=== PATIENT | female | born 1995 | race Caucasian/White ===

== ENCOUNTER → 2016-10-03 | Outpatient (CLI) | payer BC ==
[~2016-10-03] MED LIST: PRENTAB26 PO
[2016-10-03 12:34] LABS: URINE APPEARANCE CLOUDY (CLEAR); URINE BILIRUBIN NEG (NEG); URINE COLOR YELLOW; URINE EPITHELIAL CELL AUTO >30 /lpf (0-5); URINE NITRITE NEG (NEG); URINE SPECIFIC GRAVITY 1.019 (1.000-1.030); UROBILINOGEN NEG (NEG)
[2016-10-03 12:38] LABS: MANUAL MICROSCOPIC REQUIRED? NO; REVIEW REQ? NO
== END | disposition home or self-care (01) ==
LOC: C.LABSPEC 11:30
PROVIDERS: ATTEND Obstetrics & Gynecology
DX: Z34.03 Encounter for supervision of normal first pregnancy, third trimester (principal)

== ENCOUNTER → 2016-10-18 | Outpatient (CLI) | payer BC ==
[2016-10-18 13:10] LABS: HEMATOCRIT 37.1 % (37-47)
== END | disposition home or self-care (01) ==
LOC: C.LAB1850 12:02
PROVIDERS: ATTEND Obstetrics & Gynecology
DX: Z34.03 Encounter for supervision of normal first pregnancy, third trimester (principal)

== ENCOUNTER → 2016-10-31 | Outpatient (CLI) | payer BC ==
[2016-10-31 14:16] LABS: GTGD 50 Grams
== END | disposition home or self-care (01) ==
LOC: C.LAB1850 11:37
PROVIDERS: ATTEND Obstetrics & Gynecology
DX: Z34.03 Encounter for supervision of normal first pregnancy, third trimester (principal)

== ENCOUNTER → 2016-11-15 | Outpatient (CLI) | payer BC ==
[2016-11-15 19:09] LABS: PATIENT HEIGHT 139.7 cm
[2016-11-15 19:23] LABS: BASO % 0.3 %; BASO ABS # 0.03 K/uL (0-0.2); COMPLETE YES; EOS % 0.6 %; HEMATOCRIT 34.7 % (37-47); IG% 1.2 %; LYMPH % 21.8 %; LYMPH ABS # 2.36 K/uL (1.2-3.4); MEAN CELL VOLUME 83.8 fL (80-100); MEAN CORPUSCULAR HEMOGLOBIN 28.7 pg (25-34); MEAN CORPUSCULAR HGB CONC 34.3 g/dl (32-36); MEAN PLATELET VOLUME 10.9 fL (7.4-10.4); MONO % 8.7 %; NEUT % 67.4 %; PLATELET COUNT 226 K/uL (130-400); RED BLOOD COUNT 4.14 M/uL (4.2-5.4); WHITE BLOOD COUNT 10.83 K/uL (4.8-10.8)
[2016-11-15 19:45] LABS: URINE TOTAL PROTEIN 8.6 mg/dl (0-11.9)
[2016-11-15 19:45] LABS: ALT/SGPT 18 U/L (12-78); AST/SGOT 24 U/L (15-37); CREATININE 0.71 mg/dl (0.60-1.20); URIC ACID 5.3 mg/dl (2.6-7.2)
[2016-11-15 20:31] LABS: CREATININE 0.71 mg/dl (0.6-1.2); URINE TOTAL PROTEIN CALC 206.4 mg/24 hr (0-149.1)
== END | disposition home or self-care (01) ==
LOC: C.LAB 17:28
PROVIDERS: ATTEND Obstetrics & Gynecology
DX: O12.00 Gestational edema, unspecified trimester (principal)

== ENCOUNTER 2016-12-01 14:22 | Inpatient (IN) | payer BC ==
[~2016-12-01] VITALS: Ht 165.1 cm; Wt 110.0 kg
[2016-12-01] MEDS ORDERED: MAGNESIUM SULFATE / WTR 1,000 ML IV ONE (14:53)
[2016-12-01] MEDS ORDERED: HydrALAZINE HCL 20 MG/ML VIAL IV. PRN (15:00)
[2016-12-01] MEDS ORDERED: BETAMETH SOD PHOS/ACETATE IA 6 MG/ML IM SCH (15:00)
[2016-12-01] MEDS ORDERED: IV FLUIDS COMPLETED PRN (15:15)
[2016-12-01] MEDS ORDERED: CEFAZOLIN IV 1,000 MG in DEXTROSE 5% 50ML 50 ML IV PRN (15:15)
[2016-12-01] MEDS ORDERED: MAGNESIUM SULFATE 4GM / WTR 100ML IV ONE (15:30)
[2016-12-01] MEDS ORDERED: CEFAZOLIN IV 2,000 MG in DEXTROSE 5% 50ML 50 ML IV ONE (15:30)
--- NOTE | 2016-12-01 15:33 | HISTORY & PHYSICAL EXAMINATION ---
DATE OF ADMISSION: 12/01/2016 REASON FOR ADMISSION: Severe preeclampsia. HISTORY OF PRESENT ILLNESS: This is a 21-year-old who is currently 35 weeks and 4 days gestation. She was sent from the office today based on a finding of elevated blood pressure, 3+ proteinuria, headache, visual disturbances and severe edema. Her has previously been complicated only by large fundal height with findings of a high end of normal estimated weight and back pain with sciatica. She currently notes that she has good movement, no contractions, no leakage of fluid, no vaginal bleeding. A group B strep was just collected in the office, but no cervical exam is documented. The patient is complaining of a headache that has been unrelieved by Tylenol as well as intermittent visual disturbances. She currently denies any right upper quadrant pain. She does have worsening edema, which was previously to the knee and is now beginning to rise into the thigh, which is tense and painful per the patient as well as edema in her hands and her face. History includes ALLERGY TO AMOXICILLIN. MEDICATIONS: Include vitamins. PAST MEDICAL HISTORY: Depression and anxiety as well as varicella in childhood. PAST SURGICAL HISTORY: Includes oral surgery for wisdom tooth removal. FAMILY HISTORY: Noncontributory. SOCIAL HISTORY: , female. Negative x3. PHYSICAL EXAMINATION: VITAL SIGNS: Include pressure 143/86, pulse of 88. heart tones 140, moderate variability good accels, no decels. Toca shows irritability, not appreciated by the patient. HEART: Shows regular rate and rhythm. LUNGS: Clear to auscultation. ABDOMEN: Gravid and soft with edema in the skin evident. GENITOURINARY: Cervical and vaginal exam has been deferred thus far as patient was bust filling out paperwork; however, I will return to do a cervical vaginal exam shortly. EXTREMITIES: The pedal edema is 3+ with pitting and rises to well above the knee. Deep tendon reflexes in the bilateral lower extremities, 3+ but do not demonstrate clonus. ASSESSMENT AND PLAN: A 21-year-old with severe preeclampsia at 35 and 4. The plan will be to admit for induction of labor. She is getting started now on magnesium for seizure prophylaxis. She is also going to be given betamethasone according to the updated guidelines which we will repeat in 12 hours as the delivery may have occurred by 24. The patient is going to be given IV hypertensive if indicated based on future blood pressures, I will send repeat serum labs now and the method of induction will be determined pending her cervical and vaginal examination.
[2016-12-01] MEDS: LACTATED RINGER'S 1000ML 1,000 ML IV SCH ×2 (15:36→22:08)
[2016-12-01 15:42] LABS: URINE PROTIEN/CREAT RATIO 0.4 (0-0.2); URINE TOTAL PROTEIN 125.4 mg/dl (0-11.9)
[2016-12-01 15:44] LABS: BASO % 0.2 %; BASO ABS # 0.02 K/uL (0-0.2); EOS % 0.4 %; HEMATOCRIT 34.3 % (37-47); IG% 1.2 %; LYMPH % 18.1 %; LYMPH ABS # 1.87 K/uL (1.2-3.4); MEAN CELL VOLUME 83.1 fL (80-100); MEAN CORPUSCULAR HEMOGLOBIN 28.6 pg (25-34); MEAN PLATELET VOLUME 10.8 fL (7.4-10.4); MONO % 7.4 %; NEUT % 72.7 %; PLATELET COUNT 233 K/uL (130-400); RED BLOOD COUNT 4.13 M/uL (4.2-5.4); WHITE BLOOD COUNT 10.35 K/uL (4.8-10.8)
[2016-12-01 15:51] VITALS: Ht 165.1 cm; Wt 110.0 kg
[2016-12-01] MEDS ORDERED: PRENTAB26 PO ×2 (15:51)
[2016-12-01 15:53] LABS: INR 0.9 (0.9-1.1); PARTIAL THROMBOPLASTIN RATIO 1.1; PROTHROMBIN TIME (PATIENT) 9.9 SECONDS (9.0-12.0)
[2016-12-01 15:59] LABS: COMPLETE YES; MEAN CORPUSCULAR HGB CONC 34.4 g/dl (32-36)
[2016-12-01] MEDS ORDERED: LACTATED RINGER'S 1000ML 500 ML IV PRN ×2 (16:01→21:49)
[2016-12-01 16:10] LABS: CREATININE 0.72 mg/dl (0.60-1.20); URIC ACID 6.2 mg/dl (2.6-7.2)
[2016-12-01] MEDS ORDERED: OXYTOCIN 30 UNITS/500ML NSS IV PRN (16:15)
[2016-12-01] MEDS: MAGNESIUM SULFATE 40GM / WTR 1000 ML IV SCH (16:17)
[2016-12-01] MEDS ORDERED: FENTANYL 2MCG/ML ROPIV 1.25MG/ML 100ML BAG EPI ONE (21:09)
[2016-12-01] MEDS ORDERED: BUPIVACAINE 0.25% 30 ML VIAL ONE (21:09)
[2016-12-01] MEDS ORDERED: EpHEDrine SULFATE INJ 50 MG/ML AMP ONE (21:09)
[2016-12-01] MEDS ORDERED: FENTANYL CITRATE INJ 50 MCG/1 ML 2 ML VIAL ONE (21:10)
[2016-12-01] MEDS ORDERED: ONDANSETRON INJ 2 MG/ML 2 ML VIAL IV PRN (22:00)
[2016-12-01] MEDS ORDERED: NALBUPHINE HCL INJ 10 MG/ML AMP IV PRN (22:00)
[2016-12-01] MEDS ORDERED: FENTANYL 2MCG/ML ROPIV 1.25MG/ML 100ML BAG EPI PRN (22:00)
[2016-12-01] MEDS ORDERED: DiphenhydrAMINE HCL 50 MG/ML VIAL IV PRN (22:00)
[2016-12-01] MEDS ORDERED: NALOXONE HCL INJ 0.4 MG/1 ML VIAL/CARP IV PRN (22:00)
[2016-12-01] MEDS ORDERED: EpHEDrine SULFATE INJ 50 MG/ML AMP IV PRN (22:00)
[2016-12-02] MEDS ORDERED: BENZOCAINE 20% AER SPR 82.5 GM CAN EXT PRN (00:30)
[2016-12-02] MEDS ORDERED: ACETAMINOPHEN 325 MG TAB PO PRN (00:30)
[2016-12-02] MEDS ORDERED: OXYTOCIN 30 UNITS/500ML NSS IV PRN (00:30)
[2016-12-02] MEDS ORDERED: DIPHTHERIA/TETANUS/PERTUSSIS 0.5 ML SYR/VIAL IM. ONE (00:30)
[2016-12-02] MEDS ORDERED: HYDROCORTISONE ACETATE 25 MG SUPP PR PRN (00:30)
[2016-12-02] MEDS ORDERED: SUPERCREAM 0.870 % 15GM JAR EXT PRN (00:30)
[2016-12-02] MEDS ORDERED: LANOLIN OINT EXT PRN ×2 (00:30)
--- NOTE | 2016-12-02 00:50 | Anesthesia Procedure Note ---
Anesthesia Epidural Removal Nt Date & Time Dec 02, 2016 at 00:49 Vital Signs Pain Intensity: 0.0 Notes Mental Status: alert / awake / arousable, participated in evaluation Nausea / Vomiting: adequately controlled Pain: adequately controlled Airway Patency, RR, SpO2: stable & adequate BP & HR: stable & adequate Hydration State: stable & adequate Neuraxial Anesthesia: was administered Anesthetic Complications: no major complications apparent, pt satisfied with anesthetic care Epidural: removed without complications, with tip intact
[2016-12-02] MEDS ORDERED: EpHEDrine SULFATE INJ 50 MG/ML AMP ONE (02:16)
[2016-12-02] MEDS ORDERED: METHYLERGONOVINE MALEATE 0.2 MG/ML AMP ONE (02:17)
[2016-12-02] MEDS ORDERED: LIDOCAINE/PRILOCAINE 2.5% EA CRM ONE (02:26)
[2016-12-02 02:32] LABS: HEMATOCRIT 27.4 % (37-47)
[2016-12-02] MEDS: OXYTOCIN INJ 20 UNITS in LACTATED RINGER'S 1000ML 1,000 ML IV SCH (03:17)
[2016-12-02] MEDS: IBUPROFEN 600 MG TAB PO PRN ×4 (03:47→22:39)
[2016-12-02] MEDS: OXYCODONE/ACETAMINOPHEN 5-325 TAB PO PRN ×4 (03:48→22:39)
--- NOTE | 2016-12-02 03:59 | DELIVERY SUMMARY ---
DATE OF OPERATION: 12/02/2016 PREOPERATIVE DIAGNOSES: 1. Severe preclampsia with carpenter intrauterine at 35 and 4. 2. Induction of labor. 3. Group B streptococcus unknown. POSTOPERATIVE DIAGNOSES: Same. PROCEDURE: Spontaneous vaginal delivery and repair of second degree laceration. SURGEON: Lynn Garland MD CHIEF SUPPLY CHAIN OFFICER: None. ESTIMATED BLOOD LOSS: 500 mL. COMPLICATIONS: None. DISPOSITION: Stable in labor and delivery. DESCRIPTION OF PROCEDURE: Whitney is a 21-year-old , who presented at 35 and 4/7 weeks with a diagnosis of severe preclampsia from the office based on blood pressure and proteinuria. She additionally had severe symptoms including headache unrelieved by medication and visual changes as well as 3+ DTRs. For all of these reasons, delivery was recommended. The patient having been discussed with [facility] at [place] was kept here are Shahnaz Pinzon to proceed with induction. She received a dose of betamethasone as well as magnesium. She was started on antibiotics for group B strep prophylaxis in the setting of unknown group B strep and premature status and additionally her cervix was found to already be 5 cm dilated on arrival with spontaneous rupture of membranes. She was therefore augmented with Pitocin. The patient became completely dilated and was coached to push. She delivered the head of the infant in the OA position followed by both shoulders and the remainder of the with no difficulty whatsoever. The cord was noted to have extraordinarily excessive Ana's jelly, it was doubly clamped and cut by the father of the baby. The infant was very vigorous and was checked immediately by the waiting radio antenna installer. The placenta delivered spontaneously and will be sent for exam. It was noted to have a marginal insertion and to be exceptionally heavy for the gestational age. Cervix, vagina and perineum were examined and a second degree vaginal laceration was repaired in the usual fashion. At the completion of repair the fundus was firm, well contracted; lochia was minimal and mother and infant were in stable condition having tolerated delivery well. I attest to the content of the Intraoperative Record and any orders documented therein. Any exceptio ns are noted below.
[2016-12-02 07:25] LABS: HEMATOCRIT 26.9 % (37-47); MEAN CELL VOLUME 82.8 fL (80-100); MEAN CORPUSCULAR HEMOGLOBIN 27.4 pg (25-34); MEAN CORPUSCULAR HGB CONC 33.1 g/dl (32-36); MEAN PLATELET VOLUME 10.2 fL (7.4-10.4); PLATELET COUNT 206 K/uL (130-400); RED BLOOD COUNT 3.25 M/uL (4.2-5.4); WHITE BLOOD COUNT 21.87 K/uL (4.8-10.8)
[2016-12-02 07:59] LABS: BUN/CREATININE RATIO 10.3 (10-20); CALCIUM 7.8 mg/dl (8.5-10.1); CREATININE 0.91 mg/dl (0.60-1.20); POTASSIUM 4.5 mmol/L (3.5-5.1)
[2016-12-02 08:01] LABS: ALB/GLOB RATIO 0.7 (0.9-2)
[2016-12-02] MEDS: PRENATAL VITAMIN TAB PO SCH (08:21)
[2016-12-02] MEDS: DOCUSATE SODIUM 100 MG CAP PO SCH ×2 (08:21→20:00)
[2016-12-02] MEDS: CEFAZOLIN IV 1,000 MG in DEXTROSE 5% 50ML 50 ML IV SCH ×2 (09:46→18:20)
[2016-12-02] MEDS: LACTATED RINGER'S 1000ML 1,000 ML IV SCH ×2 (10:45→18:50)
[2016-12-02] MEDS: MAGNESIUM SULFATE 40GM / WTR 1000 ML IV SCH (13:33)
[2016-12-02 14:34] VITALS: BMI 47.9
[2016-12-03] MEDS: CEFAZOLIN IV 1,000 MG in DEXTROSE 5% 50ML 50 ML IV SCH ×2 (02:15→09:34)
[2016-12-03] MEDS: LACTATED RINGER'S 1000ML 1,000 ML IV SCH ×2 (02:20→09:34)
[2016-12-03 07:30] LABS: HEMATOCRIT 20.6 % (37-47); MEAN CELL VOLUME 84.4 fL (80-100); MEAN CORPUSCULAR HEMOGLOBIN 28.3 pg (25-34); MEAN CORPUSCULAR HGB CONC 33.5 g/dl (32-36); MEAN PLATELET VOLUME 9.6 fL (7.4-10.4); PLATELET COUNT 163 K/uL (130-400); RED BLOOD COUNT 2.44 M/uL (4.2-5.4)
[2016-12-03] MEDS: PRENATAL VITAMIN TAB PO SCH (08:10)
[2016-12-03] MEDS: DOCUSATE SODIUM 100 MG CAP PO SCH ×2 (08:10→20:00)
[2016-12-03] MEDS: MAGNESIUM SULFATE 40GM / WTR 1000 ML IV SCH (09:33)
[2016-12-03] MEDS: OXYTOCIN INJ 20 UNITS in LACTATED RINGER'S 1000ML 1,000 ML IV SCH (09:33)
[2016-12-03 16:15] VITALS: BP 124/84; PULSE 76; TEMP 37.2; O2SAT 96
[2016-12-03 20:40] VITALS: BP 128/70; PULSE 66; TEMP 36.8
[2016-12-03 23:35] VITALS: BP 125/80; PULSE 91; TEMP 36.9
[2016-12-04 04:45] VITALS: BP 143/87; PULSE 84; TEMP 36.8
[2016-12-04] MEDS: IBUPROFEN 600 MG TAB PO PRN (06:44)
--- NOTE | 2016-12-04 08:06 | Progress Note ---
Subjective Dec 04, 2016. Subjective conversation w/ patient, physical exam, lab review Ambulation: ambulating normally Voiding: no voiding problems Passing Gas: Yes Diet Tolerance: Regular Diet Lochia: Small Feeding Type: Breast Feeding Pain: tolerated with pain meds Comment: Patient had some lightheadedness with initial ambulation yesterday am but doing much better this am. no sob/cp. She is feeling overall much better. Objective Vital Signs Date Time Temp Pulse Resp B/P Pulse Ox O2 Delivery O2 Flow Rate FiO2 12/04/16 04:45 36.8 84 18 143/87 Room Air 12/03/16 23:35 Room Air 12/03/16 23:35 36.9 91 16 125/80 Room Air 12/03/16 20:40 36.8 66 16 128/70 Room Air 12/03/16 16:15 96 Room Air 12/03/16 16:15 37.2 76 18 124/84 96 Room Air Physical Exam General Appearance: WELL-APPEARING, WD/WN, NO APPARENT DISTRESS Respiratory/Chest: lungs clear, normal breath sounds Cardiovascular: + irregularly irregular Abdomen: normal bowel sounds, non tender, soft Fundus: Firm, Non-Tender, Relation to Umbilicus (at u) Extremities: non-tender, normal inspection, + pedal edema (+2) Assessment and Plan Post- Day#: 2 Continue Routine Care: Patient is s/p induction for pet, 24 hours of mag ended yesterday. Bakri balloon removed yesterday and doing well with small lochia. Seems to be tolerating hbg of 6.9 well. However, irreg/irreg heart rate detected today. Will order EKG. May need evaluation by medicine.
--- NOTE | 2016-12-04 09:20 | Progress Note ---
Progress Note Date of Service Dec 04, 2016. Progress Note EKG performed due to abnormal rhythm auscultated on exam by Dr Mercado this morning. EKG shows marked premature atrial contractions, reviewed EKG with on- call anthropology and archeology instructor Dr Love. PACs likely due to stress (anemia, recent delivery, etc). Will continue to monitor symptoms. At this time, patient's anemia is asymptomatic. Reviewed this information with patient also.
[2016-12-04] MEDS: PRENATAL VITAMIN TAB PO SCH (10:10)
[2016-12-04] MEDS: DOCUSATE SODIUM 100 MG CAP PO SCH (10:10)
[2016-12-04 10:30] VITALS: BP 136/92; PULSE 74; TEMP 36.9
--- NOTE | 2016-12-04 11:08 | Discharge Instructions ---
Discharge Instructions Date of Service Dec 04, 2016. Admission Reason for Admission: R/O Preeclampsia Discharge Discharge Diagnosis / Problem: s/p vaginal delivery Discharge Goals Goal(s): Routine recovery after delivery Activity Recommendations Activity Limitations: per Instructions/Follow-up section . Instructions / Follow-Up Instructions / Follow-Up ACTIVITY RECOMMENDATIONS: * Gradual return to full activity over the next 2-3 weeks. * No lifting - nothing heavier than baby over the next 2-3 weeks. * Do not engage in vigorous exercise, sexual activity or sports until cleared by your physician. * Do not drive or operate any motorized equipment until cleared by your physician. * You may shower/bathe daily. MEDICATIONS: For discomfort or pain, you may use Acetaminophen (Tylenol), Ibuprofen (Advil), or Naproxen (Aleve) following the package directions. For constipation you may use Colace following the package directions. BREAST CARE: If you are not breast feeding: * Wear a supportive bra 24 hours a day for one to two weeks. * Avoid stimulating your breasts and nipples as much as possible during the first few weeks after delivery. * When taking a shower, have the warm water hit your back, not breasts. * When your breasts feel full, apply ice packs. Usually three to four times a day helps ease the discomfort. * Take a mild pain medication (Tylenol / Motrin) when you are uncomfortable. If breast feeding: * Use breast milk to lubricate nipples. Lansinoh cream may be used for sore nipples. You do not need to remove cream prior to breast feeding. If using a different brand of cream, check the label for directions regarding removal of cream prior to nursing. * Wear a supportive bra. * If having problems with breasts or breast feeding, call a technical healthcare consultant or your health care provider. EPISIOTOMY CARE: After delivery, if you have an episiotomy (stitches), the following steps will ease discomfort and aid healing. * For the first 24 hours after delivery, place ice packs next to your episiotomy to help reduce swelling. * After the first 24 hour-period, sitz baths, either portable or in the tub, are suggested. A shower with a shower arm sprayed over the episiotomy may be comforting. * Toya care should be done after each voiding and bowel movement. Squirt warm water from a plastic bottle over the perineum (region of the body between the anus and urinary opening) and pat dry. * Use Dermoplast to ease discomfort. Shake container. [place] directly over the episiotomy. Place a Tucks on a clean sanitary pad next to your episiotomy. SPECIAL CARE INSTRUCTIONS: When you are discharged from the hospital, it is important for you to follow the instructions listed below: * During the first week at home, you should be able to care for yourself and your baby. In addition, the usual light household activities are encouraged. * Limit your activities to the way you feel. Do not try to clean the house or move furniture. Be sensible. * If you actively engage in sports and have done so up until the time of your delivery, you may resume these activities as soon as you feel able. This may take up to one month or even longer. Use good judgment. * Continue to take your vitamins for at least six weeks after the of your baby. * Your diet need not be limited unless you were on a special diet before your delivery. Breast-feeding mothers need around 2500 calories per day and at least 64-80 ounces of fluid per day (8 to 10 glasses). * You should eat foods from the four major food groups. Crash diets or fad diets are to be avoided. Eating lean meats, fresh fruits and vegetables, low-fat dairy products, high fiber foods and a regular exercise program, will help you get back to your pre- weight without putting your health at risk. * Constipation is sometimes a problem after delivery. Take a mild laxative as needed. If breast feeding, Milk of Magnesia is acceptable to use. You may use a suppository or Fleets enema if no episiotomy. * A daily shower or tub bath is suggested. Be sure to thoroughly and gently dry the perineum. * A bloody vaginal discharge will usually continue until around four weeks post . A small amount of bleeding may continue for as long as six weeks. Vaginal discharge changes from the bright red bleeding after delivery to pink then brownish and finally yellowish-pink before becoming white and disappearing. * Bleeding may increase with activity. Your first period may come in 4-8 weeks. If you are breast feeding, your period may be delayed even longer. * [place] (sex) can begin whenever both you and your partner feel comfortable and do not have any form of genital infection. It is recommended that you wait at least six weeks for internal and external healing to occur. If you have questions, please talk to your health care practitioner. A condom should be used to prevent infection and . * Foreplay, gentle intercourse and lubrication is very important the first several times to prevent pain. A water-based lubricant such as K-Y jelly or Astroglide may be used. * If you have RH negative blood and your baby is RH positive, you will receive RHOGAM by injection prior to discharge. The nurse will give you a card to keep with you that has the date and place that you received RHOGAM after delivery. * During your care, you had a Rubella screen done to check for the presence of rubella antibodies in your blood. If your test was negative, you will receive a Rubella vaccine prior to discharge. This vaccine may cause a fever, soreness at the injection site and flu-like symptoms. If these symptoms persist, notify your health care practitioner. is not advised for one month after a Rubella vaccine. * Verbalizes understanding of car seat law as reviewed with patient nursing. * Car Seat hand-out given and reviewed with patient by nursing. * Shaken baby information reviewed with patient by nursing. Call you doctor if: * Heavy bleeding (saturating several pads an hour) or passing clots the size of your fist. * A fever >101 degrees F (38.3 degrees C) on two occasions four hours apart and /or chills. * Unusual pain in the pelvic or vaginal areas. * "Baby Blues" lasting longer than two weeks. If you have any questions or concerns, call your health care practitioner at . FOLLOW UP VISIT: * Please call the office at to schedule a 6 week examination. It is important you keep this appointment. It is important for you to make arrangements for either yearly or twice yearly check-ups thereafter. Current Hospital Diet Patient's current hospital diet: Regular OB Diet Discharge Diet Recommended Diet: Regular OB Diet Pending Studies Studies pending at discharge: no Medical Emergencies . Who to Call and When: Medical Emergencies: If at any time you feel your situation is an emergency, please call 911 immediately. . Non-Emergent Contact Non-Emergency issues call your: Primary Care Provider, Busgirl . . "Provider Documentation" section prepared by Keyla Trevino. . VTE Core Measure Inpt VTE Proph given/why not?: Treatment not indicated
[2016-12-04 14:51] VITALS: BP_DIAS 92; PULSE 74; TEMP 36.9
--- NOTE | 2016-12-12 15:48 | DISCHARGE SUMMARY ---
COURSE OF CARE: This is a 21-year-old G1, P0 who was admitted at 35 weeks 4 days gestation. Based on a combination of lab work blood pressure and symptomatology, she was diagnosed with severe preeclampsia and she was indicated for delivery. Because of inability to transfer the patient to [facility] based on transport and bed availability the patient was offered induction here at [facility] which she did agree to. The patient did undergo a successful induction which resulted in a delivery of a healthy 35 week 4 day fetus via spontaneous vaginal delivery. The patient's postoperative care was essentially uncomplicated. She did demonstrate normal vital signs with resolution of her blood pressure to a normal level. She did have significant postoperative anemia following a mild hemorrhage with a kevin at 6.9. Her platelets remained normal. The patient was discharged home in stable condition on 12/04/2016 with instructions to follow up at the usual interval.
== END 2016-12-04 15:30 | disposition home or self-care (01) | DRG 774 ==
LOC: C.LD 14:22 → C.OPB 14:22 → INTOOBSV 14:55 → C.OPB 14:55 → C.LD 14:55 → OBSVTOIN 16:01 → C.OBG 12-03 15:24
PROVIDERS: ADMIT Obstetrics & Gynecology; ATTEND Obstetrics & Gynecology
PROC: 0KQM0ZZ Repair Perineum Muscle, Open Approach (ICD-10-PCS; principal; 2016-12-02)
PROC: 10903ZC Drainage of Amniotic Fluid, Therapeutic from Products of Conception, Percutaneous Approach (ICD-10-PCS; principal; 2016-12-02)
PROC: 10E0XZZ Delivery of Products of Conception, External Approach (ICD-10-PCS; principal; 2016-12-02)
DX: O60.13X1 Preterm labor second trimester with preterm delivery third trimester, fetus 1 (principal); O14.93 Unspecified pre-eclampsia, third trimester; O70.1 Second degree perineal laceration during delivery; Z37.0 Single live birth; Z3A.35 35 weeks gestation of pregnancy

== ENCOUNTER → 2016-12-01 | Outpatient (CLI) | payer BC | END | disposition home or self-care (01) | LOC: C.LABSPEC 15:16 | PROVIDERS: ATTEND Obstetrics & Gynecology | DX: Z34.03 Encounter for supervision of normal first pregnancy, third trimester (principal) ==

== ENCOUNTER → 2017-03-24 | Outpatient (CLI) | payer BC ==
[2017-03-24 19:23] LABS: BASO % 0.3 %; BASO ABS # 0.03 K/uL (0-0.2); COMPLETE YES; EOS % 0.6 %; HEMATOCRIT 41.4 % (37-47); IG% 0.2 %; LYMPH % 30.5 %; LYMPH ABS # 2.64 K/uL (1.2-3.4); MEAN CELL VOLUME 80.5 fL (80-100); MEAN CORPUSCULAR HEMOGLOBIN 27.6 pg (25-34); MEAN CORPUSCULAR HGB CONC 34.3 g/dl (32-36); MEAN PLATELET VOLUME 9.6 fL (7.4-10.4); NEUT % 62.4 %; PLATELET COUNT 229 K/uL (130-400); RED BLOOD COUNT 5.14 M/uL (4.2-5.4); WHITE BLOOD COUNT 8.65 K/uL (4.8-10.8)
[2017-03-24 19:50] LABS: ALT/SGPT 31 U/L (12-78); AMYLASE 30 U/L (25-115); AST/SGOT 15 U/L (15-37); BLOOD UREA NITROGEN 7 mg/dl (7-18); BUN/CREATININE RATIO 8.8 (10-20); CALCIUM 8.8 mg/dl (8.5-10.1); CARBON DIOXIDE 31 mmol/L (21-32); CHLORIDE 107 mmol/L (98-107); GLUCOSE 68 mg/dl (70-99); POTASSIUM 3.7 mmol/L (3.5-5.1); SODIUM 140 mmol/L (136-145)
[2017-03-24 19:53] LABS: ALB/GLOB RATIO 1.1 (0.9-2); ALKALINE PHOSPHATASE 96 U/L (45-117); C-REACTIVE PROTEIN < 0.29 mg/dl (0-0.29)
== END | disposition home or self-care (01) ==
LOC: C.LAB 19:06
PROVIDERS: ATTEND Family Medicine
DX: R10.9 Unspecified abdominal pain (principal)

== ENCOUNTER → 2017-03-29 | Outpatient (CLI) | payer BC ==
--- NOTE | 2017-03-29 09:02 | DIAGNOSTIC IMAGING REPORT ---
ABDOMEN COMPLETE (US) CLINICAL HISTORY: 21 years-old Female presenting with ABDOMINAL PAIN, 3 MONTHS . TECHNIQUE: Real-time grayscale and limited color Doppler ultrasound imaging of the abdomen was performed. COMPARISON: None. FINDINGS: Pancreas: Obscured due to overlying bowel gas. Liver: Moderately hyperechogenic parenchyma with partial obscuration of the right hemidiaphragm, likely indicating moderate steatosis. The liver measures 14.5 cm in maximal sagittal dimension. Main portal vein patent with normal directional flow. Biliary: No intrahepatic biliary ductal dilatation. Common bile duct measures up to 4 mm in diameter. Gallbladder: Normal in appearance without evidence of gallstones, gallbladder wall thickening, or pericholecystic fluid. Spleen: Normal in echogenicity and size, measuring 8.2 cm in length. Kidneys: Normal in size and echogenicity. Right kidney measures 9.8 cm, and left kidney measures 10.2 cm. No hydronephrosis. Vasculature: Visualized portions of the IVC and abdominal aorta normal. Ascites: None. IMPRESSION: 1. Hepatic steatosis. 2. No evidence of cholelithiasis or biliary ductal dilatation. Electronically signed by: Jairo Gibbs M.D. 03/29/2017 9:01 AM Dictated Date/Time: 03/29/2017 8:57 AM
== END | disposition home or self-care (01) ==
LOC: C.ULTR 07:37
PROVIDERS: ATTEND Family Medicine
DX: R10.9 Unspecified abdominal pain (principal); K76.0 Fatty (change of) liver, not elsewhere classified

== ENCOUNTER → 2017-04-20 | Outpatient (CLI) | payer BC ==
[~2017-04-20] MED LIST changes: +SINCALIDE INJ 1.7 MCG in SODIUM CHLORIDE 0.9% 100ML 100 ML IV SCH
--- NOTE | 2017-04-20 12:54 | DIAGNOSTIC IMAGING REPORT ---
NUCLEAR HEPATOBILIARY SCAN WITH EJECTION FRACTION IMAGING CLINICAL HISTORY: Intermittent diarrhea and crampy abdominal pain. COMPARISON STUDY: Abdominal ultrasound dated 03/29/2017. TECHNIQUE: Dynamic images of the liver and anterior abdomen were obtained every 5 minutes for a total of 60 minutes following the IV administration of 5.37mCi of technetium 99m Choletec. 1.7 mcg of sincalide was then injected with additional images acquired every 5 minutes for 45 minutes to calculate the gallbladder ejection fraction. FINDINGS: The hepatobiliary scan shows prompt and homogeneous hepatic uptake. There is visualized activity within the intra and extrahepatic biliary tree at 10 minutes, and within the gallbladder at 15 minutes. There is normal biliary to bowel transit, with small bowel visualized by 25 minutes. On the sincalide imaging, the gallbladder ejection fraction was measured at 92%. IMPRESSION: 1. Unremarkable nuclear hepatobiliary scan. There is no scintigraphic evidence of cholecystitis. 2. The gallbladder ejection fraction measured 92% which is normal. Electronically signed by: Rey Moreira M.D. 04/20/2017 12:52 PM Dictated Date/Time: 04/20/2017 12:51 PM
== END | disposition home or self-care (01) ==
LOC: C.NUCL 10:35
PROVIDERS: ATTEND Family Medicine
DX: R10.9 Unspecified abdominal pain (principal); R19.7 Diarrhea, unspecified